=== PATIENT | male | born 1950 | race Caucasian/White ===

== ENCOUNTER 2022-08-01 23:02 | Emergency (ER) | payer OTHER ==
[~2022-08-01] VITALS: Ht 172.7 cm; Wt 117.9 kg
[2022-08-01 23:50] VITALS: BP 155/94
--- NOTE | 2022-08-02 01:59 | NUR ---
Dr. Mccrary examining patient.
[2022-08-02] MEDS ORDERED: OFLO5SOL27 RIGHT EAR (02:45)
[2022-08-02] MEDS ORDERED: CARB15DR61 OT (02:45)
[2022-08-02] MEDS ORDERED: ACET-10509 PO (02:45)
[2022-08-02 02:57] VITALS: BP 148/87
--- NOTE | 2022-08-02 02:57 | NUR ---
Patient discharged with v/s stable. Written and verbal after care instructions given and explained for Otitis Externa. Patient alert, oriented and verbalized understanding of instructions. Ambulatory with steady gait. All questions addressed prior to discharge. ID band removed. Patient advised to follow up with PMD. Rx of Tylenol, Debrox and Ofloxacin given. Patient educated on indication of medication including possible reaction and side effects. Opportunity to ask questions provided and answered.
== END 2022-08-02 02:57 | disposition home or self-care (01) ==
LOC: MED 23:02
DX: H92.01 Otalgia, right ear (principal); Z79.899 Other long term (current) drug therapy
CPT/HCPCS: 99283